=== PATIENT | male | born 1975 | race Caucasian/White ===

== ENCOUNTER 2021-02-03 05:14 | Emergency (ER) | payer MEDICAID ==
[~2021-02-03] VITALS: Ht 182.9 cm; Wt 73.0 kg
--- NOTE | 2021-02-03 06:24 | NUR ---
PT AMBULATORY WITH STEADY GAIT FROM LOBBY TO ROOM 22
--- NOTE | 2021-02-03 06:35 | NUR ---
PT PRESENTS TO THE ER FOR A HEADACHE, PT HAS SWOLLEN LYMPH NODES ON THE BACK OF HIS HEADS, PT STATES THIS HAS BEEN GOING ON FOR 2 DAYS NOW, PT STATES THE HEAD STARTED GRADUALLY AND IT ALSO GOT GRADUALLY WORSE, PT STATES HE EXPERIENCES PAIN ON BOTH SIDES OF HIS HEAD, MD AT BEDSIDE TO DISCUSS POC
--- NOTE | 2021-02-03 06:55 | NUR ---
REPORT GIVEN TO PAT VERA
[2021-02-03] MEDS ORDERED: DIPHENHYDRAMINE 50 MG/ML, 1ML IVPush ONE (07:00)
[2021-02-03] MEDS ORDERED: SODIUM CHLORIDE 0.9% 1,000ML IVBOLUS ONE (07:00)
[2021-02-03] MEDS ORDERED: METOCLOPRAMIDE 5 MG/ML, 2ML IVPush ONE (07:00)
[2021-02-03] MEDS ORDERED: DIPHENHYDRAMINE 50 MG/ML, 1ML ONE (07:07)
[2021-02-03] MEDS ORDERED: METOCLOPRAMIDE 5 MG/ML, 2ML ONE (07:08)
--- NOTE | 2021-02-03 07:33 | NUR ---
PT MEDICATED PER AUG. PT RESTING ON ED GURNEY, EYES CLOSED, EVEN RISE AND FALL OF THE CHEST NOTED. VSS. NAD.
[2021-02-03 07:54] LABS: MEAN CORPUSCULAR HEMOGLOBIN 29.5 pg (27.5-34.5); MEAN CORPUSCULAR HGB CONC 33.6 g/dL (33.2-36.2); MEAN PLATELET VOLUME 10.7 fL (7.4-10.4); PLATELET COUNT 139 x10^3/uL (130-400); RED BLOOD COUNT 4.78 x10^6/uL (4.38-5.82); RED CELL DISTRIBUTION WIDTH 13.3 % (9.4-14.8)
[2021-02-03 07:57] LABS: ALBUMIN 2.8 g/dL (3.4-5.0); ANION GAP 8 mmol/L (5-15); CALCIUM 8.1 mg/dL (8.5-10.1); CHLORIDE 102 mmol/L (98-107); CREATININE 0.62 mg/dL (0.7-1.3)
--- NOTE | 2021-02-03 08:14 | NUR ---
PT RESTING ON ED GURNEY, EYES CLOSED, EVEN FALL AND RISE OF CHEST NOTED. NAD. VSS.
[2021-02-03] MEDS ORDERED: LABETALOL 5MG/ML, 20ML IVPush ONE (08:30)
[2021-02-03] MEDS ORDERED: LABETALOL 5MG/ML, 20ML ONE (08:49)
[2021-02-03 08:55] LABS: <PLATELET ESTIMATE> ADEQUATE; <PLT MORPHOLOGY> NORMAL PLT MORPH; <RBC MORPHOLOGY> NORMAL; BAND#(MANUAL) 0.13 x10^3/uL; BANDS%(MANUAL) 1 % (0-7); EOS#(MANUAL) 0.13 x10^3/uL (0.0-0.4); EOS% (MANUAL) 1 % (1-7); LYMPH#(MANUAL) 6.19 x10^3/uL (1-3.4); LYMPHS% (MANUAL) 48 % (22-44); MONOS#(MANUAL) 1.29 x10^3/uL (0.3-2.7); MONOS% (MANUAL) 10 % (2-9); REACTIVE LYMPHS # (MANUAL) 0.65 x10^3/uL (0-0); REACTIVE LYMPHS % (MANUAL) 5 % (0-0); SEG#(MANUAL) 4.52 x10^3/uL (1.8-6.8); SEGS% (MANUAL) 35 % (42-75)
[2021-02-03] MEDS ORDERED: KETOROLAC 30 MG/1 ML ONE (08:57)
[2021-02-03] MEDS ORDERED: KETOROLAC 30 MG/1 ML IVPush ONE (09:00)
[2021-02-03 10:22] VITALS: BP 162/95
--- NOTE | 2021-02-03 10:27 | NUR ---
PT REC'VD DISCHARGE INSTRUCTIONS AND EDUCATION. PT HAD NO FURTHER QUESTIONS.
== END 2021-02-03 11:26 | disposition home or self-care (01) ==
LOC: ED 10:00
DX: R51.9 Headache, unspecified (principal); I10 Essential (primary) hypertension; F15.10 Other stimulant abuse, uncomplicated; F17.210 Nicotine dependence, cigarettes, uncomplicated
CPT/HCPCS: 36415; 70450; 80048; 82040; 85025; 96361; 96374; 96375; 99285; 99406; J1200; J1885; J2765; J7030